=== PATIENT | female | born 1975 | race Caucasian/White ===

== ENCOUNTER 2017-02-06 10:04 | Inpatient (IN) | payer OTHER ==
[~2017-02-06] VITALS: Ht 154.9 cm; Wt 69.4 kg
[~2017-02-06 10:04] MED LIST: ALBUTEROL0.09 MG/Ac IH
[2017-02-06 11:20] LABS: CALCIUM 9.1 mg/dL (8.5-10.1); CARBON DIOXIDE 23.5 mmol/L (21-32); CHLORIDE SERUM 103 mmol/L (98-107); CREATININE SERUM 0.8 mg/dL (0.6-1.0); GFR1 > 60 mL/min; GLUCOSE SERUM 89 mg/dL (74-106); POTASSIUM SERUM 3.2 mmol/L (3.5-5.1); SODIUM SERUM 138 mmol/L (136-145)
[2017-02-06 11:23] LABS: BASOPHIL % 0.3 % (0-2); PLATELET COUNT 321 x10^3mcL (130-400); RED CELL DISTRIBUTION WIDTH 13.3 % (11.5-14.5)
[2017-02-06 11:24] LABS: ALBUMIN 3.6 g/dL (3.4-5.0); ALKALINE PHOSPHATASE 106 U/L (46-116); ALT/SGPT 23 U/L (14-59); AST/SGOT 12 U/L (15-37); BILIRUBIN TOTAL 0.5 mg/dL (0.20-1.00); TOTAL PROTEIN, SERUM 7.8 g/dL (6.4-8.2)
[2017-02-06 14:48] VITALS: BP 112/68
[2017-02-06 15:53] LABS: CHOLESTEROL/HDL RATIO 3.2; PHOSPHOROUS 3.3 mg/dL (2.5-4.9)
[2017-02-06 16:02] LABS: T3 TOTAL 0.9 ng/mL
[2017-02-06 16:24] LABS: FREE T4 1.27 ng/dL (0.76-1.46); FREE THYROXINE INDEX 3.4 ug/dL (1.4-4.5); T4(THYROXINE) 10.7 ug/dL (4.7-13.3)
[2017-02-06 17:34] VITALS: BP 106/68
[2017-02-06 23:06] VITALS: BP 105/55
[2017-02-07 06:29] VITALS: BP 91/47
[2017-02-07 06:35] LABS: BASOPHIL % 0.2 % (0-2); PLATELET COUNT 292 x10^3mcL (130-400); RED CELL DISTRIBUTION WIDTH 13.4 % (11.5-14.5)
[2017-02-07 06:55] LABS: CALCIUM 8.3 mg/dL (8.5-10.1); CARBON DIOXIDE 16.9 mmol/L (21-32); CHLORIDE SERUM 106 mmol/L (98-107); CREATININE SERUM 0.6 mg/dL (0.6-1.0); GFR1 > 60 mL/min; GLUCOSE SERUM 64 mg/dL (74-106); MAGNESIUM 1.8 mg/dL (1.8-2.4); PHOSPHOROUS 2.8 mg/dL (2.5-4.9); POTASSIUM SERUM 4.1 mmol/L (3.5-5.1); SODIUM SERUM 137 mmol/L (136-145)
[2017-02-07 10:41] VITALS: BP 103/54
[2017-02-07 12:25] VITALS: BP 103/54
[2017-02-07 14:18] VITALS: BP 113/57
[2017-02-07 17:57] VITALS: BP 108/62
[2017-02-07 21:07] VITALS: BP 97/56
[2017-02-07 22:10] LABS: microscopic required? YES; urine erythrocyte TRACE (NEGATIVE)
[2017-02-08 05:47] VITALS: BP 113/67
[2017-02-08 07:06] LABS: CALCIUM 8.4 mg/dL (8.5-10.1); CARBON DIOXIDE 19.5 mmol/L (21-32); CHLORIDE SERUM 108 mmol/L (98-107); CREATININE SERUM 0.6 mg/dL (0.6-1.0); GFR1 > 60 mL/min; GLUCOSE SERUM 91 mg/dL (74-106); MAGNESIUM 1.7 mg/dL (1.8-2.4); PHOSPHOROUS 2.8 mg/dL (2.5-4.9); POTASSIUM SERUM 3.8 mmol/L (3.5-5.1); SODIUM SERUM 139 mmol/L (136-145)
[2017-02-08 07:17] LABS: BASOPHIL % 0.4 % (0-2); PLATELET COUNT 322 x10^3mcL (130-400); RED CELL DISTRIBUTION WIDTH 13.4 % (11.5-14.5)
[2017-02-08 10:24] VITALS: BP 98/54
[2017-02-08 14:00] VITALS: BP 113/70
[2017-02-08 17:54] VITALS: BP 106/63
[2017-02-08 20:25] VITALS: BP 111/55
[2017-02-09 05:55] VITALS: BP 114/68
[2017-02-09 07:16] LABS: BASOPHIL % 0.7 % (0-2); PLATELET COUNT 342 x10^3mcL (130-400)
[2017-02-09 07:42] LABS: CALCIUM 8.4 mg/dL (8.5-10.1); CARBON DIOXIDE 17.1 mmol/L (21-32); CHLORIDE SERUM 108 mmol/L (98-107); CREATININE SERUM 0.6 mg/dL (0.6-1.0); GFR1 > 60 mL/min; GLUCOSE SERUM 86 mg/dL (74-106); MAGNESIUM 1.6 mg/dL (1.8-2.4); PHOSPHOROUS 3.2 mg/dL (2.5-4.9); POTASSIUM SERUM 3.5 mmol/L (3.5-5.1); SODIUM SERUM 141 mmol/L (136-145)
[2017-02-09 08:34] VITALS: BP 106/63
[2017-02-09 12:26] VITALS: BP 127/67
[2017-02-09 15:49] VITALS: Ht 154.9 cm; Wt 69.4 kg
[2017-02-09 16:10] VITALS: BP 106/69
[2017-02-09 21:31] VITALS: BP 108/66
[2017-02-10 05:29] VITALS: BP 101/58
[2017-02-10 06:21] LABS: BASOPHIL % 0.3 % (0-2); PLATELET COUNT 347 x10^3mcL (130-400); RED CELL DISTRIBUTION WIDTH 13.4 % (11.5-14.5)
[2017-02-10 09:00] VITALS: BP 103/72
[2017-02-10] MEDS ORDERED: FLA500 PO ×2 (11:22→15:19)
[2017-02-10] MEDS ORDERED: CIPRO500 MG PO ×2 (11:23→15:19)
[2017-02-10] MEDS ORDERED: LAC PO ×2 (11:24→15:19)
[2017-02-10] MEDS ORDERED: DUL5 PO ×2 (11:25→15:19)
[2017-02-10] MEDS ORDERED: COL100 PO ×2 (11:26→15:19)
[2017-02-10] MEDS ORDERED: TYLENOL WITH CO1 TA2 PO (11:30)
[2017-02-10] MEDS ORDERED: TRAMADOL HCL50 MG PO (11:48)
[2017-02-10 12:00] VITALS: BP 115/72
[2017-02-10 14:08] VITALS: BP 115/72
== END 2017-02-10 15:44 | disposition home or self-care (01) | DRG 244 ==
LOC: ED 10:04 → DU 14:01
PROVIDERS: Emergency Medicine; Family Medicine Sports Medicine; ADMIT Family Medicine
DX: K57.32 Diverticulitis of large intestine without perforation or abscess without bleeding (principal); E83.42 Hypomagnesemia; E87.6 Hypokalemia; Z53.29 Procedure and treatment not carried out because of patient's decision for other reasons; E78.5 Hyperlipidemia, unspecified; D64.9 Anemia, unspecified; J45.909 Unspecified asthma, uncomplicated; K59.00 Constipation, unspecified; Z68.28 Body mass index [BMI] 28.0-28.9, adult; Z83.3 Family history of diabetes mellitus; Z82.49 Family history of ischemic heart disease and other diseases of the circulatory system; Z72.89 Other problems related to lifestyle
CPT/HCPCS: 83880; 84439; J1885; J1956; J2270; J2405; J3475; J3490; J7030; J7613; Q0092

== ENCOUNTER 2017-02-16 14:33 | Inpatient (IN) | payer OTHER ==
[~2017-02-16] VITALS: Ht 154.9 cm; Wt 67.0 kg
[~2017-02-16 14:33] MED LIST changes: +CIPRO500 MG PO; +COL100 PO; +DUL5 PO; +FLA500 PO; +LAC PO; +TRAMADOL HCL50 MG PO; +TYLENOL WITH CO1 TA2 PO
[2017-02-16 15:58] LABS: BASOPHIL % 0.5 % (0-2); PLATELET COUNT 363 x10^3mcL (130-400); RED CELL DISTRIBUTION WIDTH 13.4 % (11.5-14.5)
[2017-02-16 16:08] LABS: ALBUMIN 3.7 g/dL (3.4-5.0); ALKALINE PHOSPHATASE 84 U/L (46-116); ALT/SGPT 28 U/L (14-59); AMYLASE 37 U/L (25-115); AST/SGOT 20 U/L (15-37); BILIRUBIN TOTAL 0.3 mg/dL (0.20-1.00); CARBON DIOXIDE 24.8 mmol/L (21-32); CHLORIDE SERUM 103 mmol/L (98-107); CREATININE SERUM 0.6 mg/dL (0.6-1.0); GFR1 > 60 mL/min; GLUCOSE SERUM 83 mg/dL (74-106); LIPASE 87 IU/L (73-393); SODIUM SERUM 140 mmol/L (136-145); TOTAL PROTEIN, SERUM 7.5 g/dL (6.4-8.2)
[2017-02-16 16:13] LABS: POTASSIUM SERUM 2.9 mmol/L (3.5-5.1)
[2017-02-16 18:31] VITALS: BP 109/68
[2017-02-16 19:09] VITALS: BP 109/68
[2017-02-16 21:34] VITALS: BP 113/62
[2017-02-16 22:59] LABS: UA SPECIFIC GRAVITY 1.025 (1.005-1.035); microscopic required? YES; urine erythrocyte TRACE (NEGATIVE)
[2017-02-16 23:09] LABS: MAGNESIUM 2.1 mg/dL (1.8-2.4); PHOSPHOROUS 3.2 mg/dL (2.5-4.9)
[2017-02-16 23:17] LABS: CHOLESTEROL/HDL RATIO 4.6
[2017-02-16 23:29] LABS: AMPHETAMINE QUAL UR NONE DETECTED (NEG <=1000)
[2017-02-17 06:13] VITALS: BP 100/50
[2017-02-17 12:00] VITALS: BP 100/50; BP 97/56
[2017-02-17 13:05] LABS: BASOPHIL % 0.5 % (0-2); PLATELET COUNT 282 x10^3mcL (130-400); RED CELL DISTRIBUTION WIDTH 13.8 % (11.5-14.5)
[2017-02-17 13:19] LABS: CALCIUM 8.2 mg/dL (8.5-10.1); CARBON DIOXIDE 22.9 mmol/L (21-32); CHLORIDE SERUM 107 mmol/L (98-107); CREATININE SERUM 0.5 mg/dL (0.6-1.0); GFR1 > 60 mL/min; GLUCOSE SERUM 81 mg/dL (74-106); MAGNESIUM 1.7 mg/dL (1.8-2.4); POTASSIUM SERUM 3.3 mmol/L (3.5-5.1); SODIUM SERUM 140 mmol/L (136-145)
[2017-02-17 16:19] VITALS: BP 97/57
[2017-02-17 21:38] VITALS: BP 101/42
[2017-02-18 05:45] VITALS: BP 95/59
[2017-02-18 06:39] LABS: BASOPHIL % 0.7 % (0-2); PLATELET COUNT 266 x10^3mcL (130-400); RED CELL DISTRIBUTION WIDTH 13.4 % (11.5-14.5)
[2017-02-18 06:46] LABS: CALCIUM 8.3 mg/dL (8.5-10.1); CHLORIDE SERUM 108 mmol/L (98-107); CREATININE SERUM 0.6 mg/dL (0.6-1.0); GFR1 > 60 mL/min; GLUCOSE SERUM 82 mg/dL (74-106); MAGNESIUM 1.7 mg/dL (1.8-2.4); PHOSPHOROUS 3.2 mg/dL (2.5-4.9); POTASSIUM SERUM 3.6 mmol/L (3.5-5.1); SODIUM SERUM 142 mmol/L (136-145)
[2017-02-18 09:19] VITALS: BP 105/63
[2017-02-18 17:34] VITALS: BP 102/62
[2017-02-18 20:49] VITALS: BP 100/62
[2017-02-19 05:38] VITALS: BP 92/54
[2017-02-19 06:47] LABS: CALCIUM 8.7 mg/dL (8.5-10.1); CARBON DIOXIDE 27.6 mmol/L (21-32); CHLORIDE SERUM 106 mmol/L (98-107); CREATININE SERUM 0.7 mg/dL (0.6-1.0); GFR1 > 60 mL/min; GLUCOSE SERUM 87 mg/dL (74-106); MAGNESIUM 1.7 mg/dL (1.8-2.4); POTASSIUM SERUM 3.3 mmol/L (3.5-5.1); SODIUM SERUM 142 mmol/L (136-145)
[2017-02-19 09:08] VITALS: BP 96/59
[2017-02-19] MEDS ORDERED: LAC PO (10:27)
[2017-02-19] MEDS ORDERED: AVELOX400 MG PO (10:27)
[2017-02-19] MEDS ORDERED: COL100 PO (10:27)
[2017-02-19] MEDS ORDERED: ZOF4 PO (10:28)
[2017-02-19 11:30] VITALS: BP 96/59
== END 2017-02-19 13:50 | disposition home or self-care (01) | DRG 244 ==
LOC: ED 14:33 → MU 17:33 → DU 17:33 → MU 02-17 07:15
PROVIDERS: Emergency Medicine; Family Medicine; ADMIT Family Medicine Sports Medicine
DX: K57.32 Diverticulitis of large intestine without perforation or abscess without bleeding (principal); N17.0 Acute kidney failure with tubular necrosis; E87.6 Hypokalemia; R31.9 Hematuria, unspecified; J45.909 Unspecified asthma, uncomplicated; E83.42 Hypomagnesemia; Z83.3 Family history of diabetes mellitus; Z82.49 Family history of ischemic heart disease and other diseases of the circulatory system; Z98.51 Tubal ligation status
CPT/HCPCS: 83880; G0378; J1885; J2405; J2543; J3480; J7030; J7613; Q0092

== ENCOUNTER 2017-07-10 13:20 | Emergency (ER) | payer OTHER ==
[~2017-07-10] VITALS: Ht 154.9 cm; Wt 61.2 kg
[~2017-07-10 13:20] MED LIST changes: +AVELOX400 MG PO; +ZOF4 PO
[2017-07-10 13:26] VITALS: Ht 154.9 cm; Wt 61.2 kg
[2017-07-10 14:15] LABS: CALCIUM 9.1 mg/dL (8.5-10.1); CARBON DIOXIDE 26.5 mmol/L (21-32); CHLORIDE SERUM 102 mmol/L (98-107); CREATININE SERUM 0.7 mg/dL (0.6-1.0); GFR1 > 60 mL/min; GLUCOSE SERUM 94 mg/dL (74-106); POTASSIUM SERUM 3.3 mmol/L (3.5-5.1); SODIUM SERUM 140 mmol/L (136-145)
[2017-07-10 14:19] LABS: ALBUMIN 3.9 g/dL (3.4-5.0); ALKALINE PHOSPHATASE 87 U/L (46-116); ALT/SGPT 60 U/L (14-59); AST/SGOT 39 U/L (15-37); BILIRUBIN TOTAL 0.3 mg/dL (0.20-1.00); LIPASE 52 IU/L (73-393); TOTAL PROTEIN, SERUM 7.9 g/dL (6.4-8.2)
[2017-07-10 14:23] LABS: PLATELET COUNT 254 x10^3mcL (130-400); RED CELL DISTRIBUTION WIDTH 13.9 % (11.5-14.5)
[2017-07-10 16:41] LABS: BAND NEUTROPHIL 0 % (0-10); BASOPHIL 0 % (0-2); MONOCYTE 9 % (0-7); SEGMENTED NEUTROPHILS 39 % (37-75)
[2017-07-10 16:43] LABS: PLATELET MORPHOLOGY PLATELETS NORMAL; rbc morphology (normal/abnorm) NORMAL (NORMAL)
[2017-07-10 17:15] VITALS: BP 122/72
[2017-07-10 18:55] LABS: UA SPECIFIC GRAVITY <=1.005 (1.005-1.035); microscopic required? YES; urine erythrocyte TRACE (NEGATIVE)
== END 2017-07-10 17:33 | disposition home or self-care (01) ==
LOC: ED 13:20
PROVIDERS: Emergency Medicine
DX: R10.9 Unspecified abdominal pain (principal); R11.10 Vomiting, unspecified; R19.7 Diarrhea, unspecified; J45.909 Unspecified asthma, uncomplicated
CPT/HCPCS: 83880; 87804; J1885; J2270; J2405; J7030; J7613; J7644; Q0092; Q9967

== ENCOUNTER 2018-02-14 23:03 | Emergency (ER) | payer OTHER ==
[~2018-02-14] VITALS: Ht 154.9 cm; Wt 67.1 kg
[2018-02-14 23:20] VITALS: Ht 154.9 cm; Wt 67.1 kg
[2018-02-15 00:26] LABS: CALCIUM 8.6 mg/dL (8.5-10.1); CARBON DIOXIDE 24.6 mmol/L (21-32); CHLORIDE SERUM 105 mmol/L (98-107); CREATININE SERUM 0.8 mg/dL (0.6-1.0); GFR1 > 60 mL/min; GLUCOSE SERUM 107 mg/dL (74-106); PLATELET COUNT 285 x10^3mcL (130-400); POTASSIUM SERUM 3.2 mmol/L (3.5-5.1); RED CELL DISTRIBUTION WIDTH 12.1 % (11.5-14.5); SODIUM SERUM 139 mmol/L (136-145)
[2018-02-15 00:27] LABS: BASOPHIL % 0.3 % (0-2)
[2018-02-15 00:31] LABS: ALKALINE PHOSPHATASE 81 U/L (46-116); ALT/SGPT 33 U/L (14-59); AST/SGOT 22 U/L (15-37); BILIRUBIN TOTAL 0.1 mg/dL (0.20-1.00); TOTAL PROTEIN, SERUM 6.5 g/dL (6.4-8.2)
[2018-02-15 00:32] LABS: ALBUMIN 3.1 g/dL (3.4-5.0)
[2018-02-15 03:10] LABS: microscopic required? NO
[2018-02-15 03:28] LABS: UA SPECIFIC GRAVITY <=1.005 (1.005-1.035); urine erythrocyte NEGATIVE (NEGATIVE)
[2018-02-15 04:39] VITALS: BP 118/71
== END 2018-02-15 04:39 | disposition home or self-care (01) ==
LOC: ED 23:03
PROVIDERS: Emergency Medicine
DX: M54.6 Pain in thoracic spine (principal); G51.0 Bell's palsy; J45.909 Unspecified asthma, uncomplicated
CPT/HCPCS: J2270; J2405; Q9967

== ENCOUNTER 2018-02-23 13:36 | Inpatient (IN) | payer OTHER ==
[~2018-02-23] VITALS: Ht 154.9 cm; Wt 65.5 kg
[2018-02-23 14:48] LABS: BASOPHIL % 0.3 % (0-2); PLATELET COUNT 362 x10^3mcL (130-400); RED CELL DISTRIBUTION WIDTH 13.1 % (11.5-14.5)
[2018-02-23 14:52] LABS: CALCIUM 9.4 mg/dL (8.5-10.1); CARBON DIOXIDE 26.6 mmol/L (21-32); CHLORIDE SERUM 101 mmol/L (98-107); CREATININE SERUM 0.7 mg/dL (0.6-1.0); GFR1 > 60 mL/min; GLUCOSE SERUM 93 mg/dL (74-106); POTASSIUM SERUM 3.3 mmol/L (3.5-5.1); SODIUM SERUM 135 mmol/L (136-145)
[2018-02-23 14:57] LABS: ALBUMIN 3.6 g/dL (3.4-5.0); ALKALINE PHOSPHATASE 99 U/L (46-116); ALT/SGPT 29 U/L (14-59); AMYLASE 46 U/L (25-115); AST/SGOT 13 U/L (15-37); BILIRUBIN TOTAL 0.3 mg/dL (0.20-1.00); LIPASE 82 IU/L (73-393); TOTAL PROTEIN, SERUM 8.2 g/dL (6.4-8.2)
[2018-02-23 16:16] LABS: MAGNESIUM 2.1 mg/dL (1.8-2.4); PHOSPHOROUS 3.6 mg/dL (2.5-4.9)
[2018-02-23 16:20] LABS: CHOLESTEROL/HDL RATIO 2.3
[2018-02-23 16:26] LABS: T3 TOTAL 1.76 ng/mL
[2018-02-23 16:33] VITALS: BP 100/51
[2018-02-23 16:36] VITALS: Ht 154.9 cm; Wt 65.5 kg
[2018-02-23 16:46] LABS: FREE T4 1.23 ng/dL (0.76-1.46); FREE THYROXINE INDEX 3.1 ug/dL (1.4-4.5); T4(THYROXINE) 10.8 ug/dL (4.7-13.3)
[2018-02-23 18:16] VITALS: BP 103/53
[2018-02-23 19:20] VITALS: BP 102/44
[2018-02-23 19:58] VITALS: BP 97/52
[2018-02-23 20:00] VITALS: BP 94/52
[2018-02-24 00:03] VITALS: BP 91/50
[2018-02-24 02:50] VITALS: BP 97/51
[2018-02-24 02:59] LABS: microscopic required? NO
[2018-02-24 03:14] LABS: UA SPECIFIC GRAVITY >=1.030 (1.005-1.035); urine erythrocyte NEGATIVE (NEGATIVE)
[2018-02-24 05:01] VITALS: BP 108/57
[2018-02-24 06:11] LABS: BASOPHIL % 0.2 % (0-2); PLATELET COUNT 318 x10^3mcL (130-400); RED CELL DISTRIBUTION WIDTH 12.6 % (11.5-14.5)
[2018-02-24 06:29] LABS: CARBON DIOXIDE 25.9 mmol/L (21-32); CHLORIDE SERUM 106 mmol/L (98-107); CREATININE SERUM 0.7 mg/dL (0.6-1.0); GFR1 > 60 mL/min; GLUCOSE SERUM 92 mg/dL (74-106); MAGNESIUM 1.6 mg/dL (1.8-2.4); PHOSPHOROUS 2.6 mg/dL (2.5-4.9); POTASSIUM SERUM 3.9 mmol/L (3.5-5.1); SODIUM SERUM 139 mmol/L (136-145)
[2018-02-24 09:02] VITALS: BP 101/52
[2018-02-24 17:03] VITALS: BP 106/58
[2018-02-24 20:56] VITALS: BP 107/63
[2018-02-25 05:52] VITALS: BP 108/54
[2018-02-25 05:57] LABS: BASOPHIL % 0.5 % (0-2); PLATELET COUNT 308 x10^3mcL (130-400); RED CELL DISTRIBUTION WIDTH 12.3 % (11.5-14.5)
[2018-02-25 06:37] LABS: CALCIUM 8.2 mg/dL (8.5-10.1); CARBON DIOXIDE 22.5 mmol/L (21-32); CHLORIDE SERUM 106 mmol/L (98-107); CREATININE SERUM 0.6 mg/dL (0.6-1.0); GFR1 > 60 mL/min; GLUCOSE SERUM 78 mg/dL (74-106); MAGNESIUM 1.8 mg/dL (1.8-2.4); SODIUM SERUM 139 mmol/L (136-145)
[2018-02-25 08:31] VITALS: BP 95/50
[2018-02-25 16:33] VITALS: BP 97/50
[2018-02-25 20:46] VITALS: BP 110/54
[2018-02-25 22:00] VITALS: BP 110/54
[2018-02-26 05:30] VITALS: BP 104/54
[2018-02-26 06:12] LABS: BASOPHIL % 0.4 % (0-2); PLATELET COUNT 371 x10^3mcL (130-400); RED CELL DISTRIBUTION WIDTH 12.4 % (11.5-14.5)
[2018-02-26 06:32] LABS: CALCIUM 8.6 mg/dL (8.5-10.1); CARBON DIOXIDE 22.7 mmol/L (21-32); CHLORIDE SERUM 104 mmol/L (98-107); CREATININE SERUM 0.7 mg/dL (0.6-1.0); GFR1 > 60 mL/min; GLUCOSE SERUM 96 mg/dL (74-106); POTASSIUM SERUM 3.7 mmol/L (3.5-5.1); SODIUM SERUM 138 mmol/L (136-145)
[2018-02-26 08:29] VITALS: BP 101/61
[2018-02-26] MEDS ORDERED: LEVAQUIN750 MG PO (12:08)
[2018-02-26] MEDS ORDERED: MIRALAX17 GM/Dose PO (12:08)
[2018-02-26] MEDS ORDERED: FLA500 PO (12:11)
[2018-02-26] MEDS ORDERED: ZOFRAN ODT4 MG SL (12:12)
== END 2018-02-26 13:29 | disposition home or self-care (01) | DRG 720 ==
LOC: ED 13:36 → MU 15:30
PROVIDERS: Internal Medicine; Specialist
DX: A41.9 Sepsis, unspecified organism (principal); E83.42 Hypomagnesemia; E87.1 Hypo-osmolality and hyponatremia; K57.32 Diverticulitis of large intestine without perforation or abscess without bleeding; J45.909 Unspecified asthma, uncomplicated; R73.03 Prediabetes; E87.6 Hypokalemia; Z68.26 Body mass index [BMI] 26.0-26.9, adult; Z83.3 Family history of diabetes mellitus; Z82.49 Family history of ischemic heart disease and other diseases of the circulatory system; Z83.79 Family history of other diseases of the digestive system; E02 Subclinical iodine-deficiency hypothyroidism
CPT/HCPCS: 83880; 84439; 94150; J1885; J1956; J2270; J2405; J2550; J3010; J3490; J7030; J7620; Q0092

== ENCOUNTER 2018-05-30 20:02 | Emergency (ER) | payer OTHER ==
[~2018-05-30] VITALS: Ht 154.9 cm; Wt 64.9 kg
[~2018-05-30 20:02] MED LIST changes: +LEVAQUIN750 MG PO; +MIRALAX17 GM/Dose PO; +ZOFRAN ODT4 MG SL
[2018-05-30 20:31] VITALS: Ht 154.9 cm; Wt 64.9 kg
[2018-05-30 21:17] LABS: BASOPHIL % 0.4 % (0-2); PLATELET COUNT 299 x10^3mcL (130-400)
[2018-05-30 21:31] LABS: CALCIUM 9.3 mg/dL (8.5-10.1); CARBON DIOXIDE 24.9 mmol/L (21-32); CHLORIDE SERUM 102 mmol/L (98-107); CREATININE SERUM 0.9 mg/dL (0.6-1.0); GFR1 > 60 mL/min; GLUCOSE SERUM 127 mg/dL (74-106); POTASSIUM SERUM 3.1 mmol/L (3.5-5.1); SODIUM SERUM 135 mmol/L (136-145)
[2018-05-30 21:35] LABS: ALBUMIN 3.8 g/dL (3.4-5.0); ALKALINE PHOSPHATASE 106 U/L (46-116); ALT/SGPT 15 U/L (14-59); AST/SGOT 14 U/L (15-37); LIPASE 88 IU/L (73-393); TOTAL PROTEIN, SERUM 7.3 g/dL (6.4-8.2)
[2018-05-30 21:53] LABS: BILIRUBIN TOTAL 0.11 mg/dL (0.20-1.00)
[2018-05-31 00:34] VITALS: BP 132/68
== END 2018-05-31 00:34 | disposition home or self-care (01) ==
LOC: ED 20:02
PROVIDERS: Emergency Medicine
DX: K57.92 Diverticulitis of intestine, part unspecified, without perforation or abscess without bleeding (principal); J45.909 Unspecified asthma, uncomplicated; Z90.89 Acquired absence of other organs
CPT/HCPCS: J1885; J2405; J3490; J7030

== ENCOUNTER 2019-01-26 22:33 | Emergency (ER) | payer OTHER ==
[~2019-01-26] VITALS: Ht 154.9 cm; Wt 68.9 kg
[2019-01-26 22:57] VITALS: Ht 154.9 cm; Wt 68.9 kg
[2019-01-27 00:35] VITALS: BP 136/72
== END 2019-01-27 00:36 | disposition home or self-care (01) ==
LOC: ED 22:33
DX: J45.909 Unspecified asthma, uncomplicated (principal)
CPT/HCPCS: J1885; J7620; Q0092

== ENCOUNTER 2019-06-29 19:16 | Emergency (ER) | payer OTHER ==
[~2019-06-29] VITALS: Ht 160 cm; Wt 75.3 kg
[2019-06-29 19:21] VITALS: Ht 160 cm; Wt 75.3 kg
[2019-06-29 21:15] LABS: BASOPHIL % 0.5 % (0-2); PLATELET COUNT 274 x10^3mcL (130-400); RED CELL DISTRIBUTION WIDTH 13.4 % (11.5-14.5)
[2019-06-29 21:17] LABS: CALCIUM 9.1 mg/dL (8.5-10.1); CARBON DIOXIDE 27.5 mmol/L (21-32); CHLORIDE SERUM 107 mmol/L (98-107); CREATININE SERUM 0.7 mg/dL (0.6-1.0); GFR1 > 60 mL/min; GLUCOSE SERUM 98 mg/dL (74-106); POTASSIUM SERUM 3.5 mmol/L (3.5-5.1); SODIUM SERUM 141 mmol/L (136-145)
[2019-06-29 21:22] LABS: ALBUMIN 3.5 g/dL (3.4-5.0); ALKALINE PHOSPHATASE 92 U/L (46-116); ALT/SGPT 26 U/L (14-59); AST/SGOT 12 U/L (15-37); BILIRUBIN TOTAL 0.18 mg/dL (0.20-1.00); LIPASE 93 IU/L (73-393)
[2019-06-30 00:49] VITALS: BP 96/63
== END 2019-06-30 03:12 | disposition home or self-care (01) ==
LOC: ED 19:16
PROVIDERS: Emergency Medicine
DX: K57.92 Diverticulitis of intestine, part unspecified, without perforation or abscess without bleeding (principal); J45.909 Unspecified asthma, uncomplicated; Z98.890 Other specified postprocedural states
CPT/HCPCS: J2270; J2405; J3490; J7030

== ENCOUNTER 2019-10-03 10:23 | Emergency (ER) | payer OTHER ==
[~2019-10-03] VITALS: Ht 154.9 cm; Wt 72.6 kg
[2019-10-03 10:34] VITALS: Ht 154.9 cm; Wt 72.6 kg
[2019-10-03 13:20] VITALS: BP 121/54
== END 2019-10-03 13:20 | disposition home or self-care (01) ==
LOC: ED 10:23
DX: S63.91XA Sprain of unspecified part of right wrist and hand, initial encounter (principal); S30.0XXA Contusion of lower back and pelvis, initial encounter; J45.909 Unspecified asthma, uncomplicated; Z20.828 Contact with and (suspected) exposure to other viral communicable diseases; W01.0XXA Fall on same level from slipping, tripping and stumbling without subsequent striking against object, initial encounter; Y93.01 Activity, walking, marching and hiking; Y92.89 Other specified places as the place of occurrence of the external cause; Y99.8 Other external cause status
CPT/HCPCS: 82962; C9803-CS; Q0092; U0003-CS

== ENCOUNTER 2019-11-24 22:34 | Emergency (ER) | payer OTHER ==
[~2019-11-24] VITALS: Ht 154.9 cm; Wt 74.4 kg
[2019-11-24 22:41] VITALS: Ht 154.9 cm; Wt 74.4 kg
[2019-11-25 00:27] VITALS: BP 109/74
== END 2019-11-25 00:27 | disposition home or self-care (01) ==
LOC: ED 22:34
DX: S93.402A Sprain of unspecified ligament of left ankle, initial encounter (principal); W04.XXXA Fall while being carried or supported by other persons, initial encounter; Y93.89 Activity, other specified; Y92.89 Other specified places as the place of occurrence of the external cause; Y99.8 Other external cause status
CPT/HCPCS: 90715; Q0092

== ENCOUNTER 2020-06-22 14:18 | Emergency (ER) | payer OTHER, SELFPAY ==
[~2020-06-22] VITALS: Ht 154.9 cm; Wt 71.2 kg
[2020-06-22 14:38] VITALS: BP 140/69; Ht 154.9 cm; Wt 71.2 kg
== END 2020-06-22 17:15 | disposition home or self-care (01) ==
LOC: ED 14:18
DX: J45.909 Unspecified asthma, uncomplicated (principal); F41.9 Anxiety disorder, unspecified; F17.210 Nicotine dependence, cigarettes, uncomplicated; Z20.828 Contact with and (suspected) exposure to other viral communicable diseases; Z71.6 Tobacco abuse counseling
CPT/HCPCS: 99406; U0003

== ENCOUNTER 2020-07-20 11:10 | Emergency (ER) | payer OTHER, SELFPAY ==
[~2020-07-20] VITALS: Ht 154.9 cm; Wt 68.0 kg
[2020-07-20 11:12] VITALS: Ht 154.9 cm; Wt 68.0 kg
[2020-07-20] MEDS ORDERED: RAYOS5 MG PO (13:35)
[2020-07-20] MEDS ORDERED: VENTOLIN H0.09 MG/A1 IH (13:35)
[2020-07-20 14:14] VITALS: BP 116/78
== END 2020-07-20 14:14 | disposition home or self-care (01) ==
LOC: ED 11:10
DX: J45.901 Unspecified asthma with (acute) exacerbation (principal); Z20.822 Contact with and (suspected) exposure to COVID-19
CPT/HCPCS: J7512